=== PATIENT | male | born 1960 | race Caucasian/White ===

== ENCOUNTER 2023-07-13 08:42 | Observation (INO) ==
[2023-07-13 09:33] LABS: Platelet Count 308 10^3/uL (150-450)
[2023-07-13] MEDS ORDERED: Ondansetron 4 mg VIAL 2 MG/ML 2 ml VIAL IV PRN (09:41)
[2023-07-13] MEDS ORDERED: Morphine 2 MG/ML SYRINGE IV PRN (09:41)
[2023-07-13 09:42] LABS: Activated Partial Thrombo Time 24.2 seconds (26.0-38.0); INR 0.89 (0.83-1.13)
[2023-07-13] MEDS: ceFAZolin 1 GM ADVAN 1 GM ADDV.VIAL IVPB ONE (14:20)
[2023-07-13] MEDS: fentaNYL 250 mcg/5 ml 50 MCG/ML 5 ml VIAL (250 MCG) ONE (14:20)
[2023-07-13] MEDS: Midazolam 2 mg/2 ml VIAL 1 mg/ml 2 ml VIAL (2 mg) ONE (14:20)
[2023-07-13] MEDS: Bupivacaine 0.5% SDV PF 30ML VIAL ONE (14:20)
[2023-07-13] MEDS: Lidocaine 1% w EPI 1:100,000 MDV 20 ML VIAL ONE (14:20)
[2023-07-13] MEDS: Glucagon 1 mg VIAL KIT ONE (14:20)
[2023-07-13] MEDS: fentaNYL 100 mcg/2 ml 50 MCG/ML VIAL ONE (14:21)
[2023-07-13] MEDS: Lidocaine 2% JELLY 6 ML Topical TOPICAL ONE (14:21)
[2023-07-13] MEDS: Lactated Ringers 1000 ml BAG 1,000 ML IV ONE (15:17)
[2023-07-13] MEDS: HYDROmorphone 0.5 MG/0.5 ML SYRINGE IV SLOW PU PRN (15:22)
[2023-07-14 05:14] LABS: ABS Eosinophils 0.1 10^3/uL (0.0-0.5); ABS Lymphocytes 0.7 10^3/uL (1.0-4.8); ABS Monocytes 0.2 10^3/uL (0.0-1.1); ABS Neutrophils 3.9 10^3/uL (1.5-7.6); ABS Nucleated RBC 0.01 10^3/ul; Eosinophil % 2.1 %; Hemoglobin 10.3 g/dL (13.2-16.3); Lymphocyte % 13.4 %; Mean Corpuscular Hemoglobin 33.5 pg (27-33); Mean Corpuscular Hgb Conc 34.2 g/dL (31-36); Mean Corpuscular Volume 97.9 fL (80-97); Mean Platelet Volume 6.4 fL (7.5-11.2); Nucleated Red Blood Cells % 0.2 %/100WBC (0.0-0.8); Platelet Count 278 10^3/uL (150-450); Red Blood Count 3.06 10^6/uL (4.06-5.63); Red Cell Distribution Width 13.7 % (12-17)
[2023-07-14 05:42] LABS: Albumin 3.1 g/dL (3.2-5.2); Albumin/Globulin Ratio 1.1 (1-3); Calcium 8.7 mg/dL (8.6-10.3); Creatinine, Serum 0.45 mg/dL (0.67-1.17); Globulin 2.7 g/dL (2-4); Potassium 4.4 mmol/L (3.5-5.0); Total Bilirubin 0.3 mg/dL (0.2-1.0); Total Protein 5.8 g/dL (6.4-8.9); eGFR CKD-EPI 119.8 (>60)
[2023-07-14 13:57] VITALS: BP 100/73
== END 2023-07-14 14:15 | disposition home or self-care (01) ==
LOC: MED 08:42 → SP 08:42
PROVIDERS: ADMIT Internal Medicine Hematology; ATTEND Internal Medicine Hematology & Oncology

== ENCOUNTER 2023-09-29 13:08 | Inpatient (IN) ==
[~2023-09-29 13:08] MED LIST: APREPITANT 130 MG in Premix IV 0 ML IV SCH; CARBOPLATIN IVPB SCH; CISPLATIN IVPB SCH; FLUOROURACIL IVPB SCH; MAGNESIUM SULFATE IVPB SCH; NS 0.9% IVPB SCH; PEMBROLIZUMAB IVPB SCH; POTASSIUM CHLORIDE IVPB SCH
[2023-09-29 13:43] LABS: ABS Lymphocytes 0.5 10^3/uL (1.0-4.8); ABS Monocytes 0.4 10^3/uL (0.0-1.1); ABS Neutrophils 3.4 10^3/uL (1.5-7.6); ABS Nucleated RBC 0.01 10^3/ul; Eosinophil % 0.1 %; Hematocrit 25.9 % (38-53); Hemoglobin 8.9 g/dL (13.2-16.3); Lymphocyte % 12.1 %; Mean Corpuscular Hemoglobin 31.9 pg (27-33); Mean Corpuscular Hgb Conc 34.4 g/dL (31-36); Mean Corpuscular Volume 92.8 fL (80-97); Mean Platelet Volume 6.5 fL (7.5-11.2); Nucleated Red Blood Cells % 0.1 %/100WBC (0.0-0.8); Platelet Count 324 10^3/uL (150-450); Red Blood Count 2.79 10^6/uL (4.06-5.63); Red Cell Distribution Width 19.8 % (12-17); White Blood Count 4.4 10^3/uL (3.6-10.2)
[2023-09-29 14:35] LABS: Albumin 3.3 g/dL (3.2-5.2); Albumin/Globulin Ratio 1.1 (1-3); Calcium 9.7 mg/dL (8.6-10.3); Creatinine, Serum 0.8 mg/dL (0.67-1.17); Globulin 3.1 g/dL (2-4); Magnesium 2.1 mg/dL (1.9-2.7); Potassium 4.2 mmol/L (3.5-5.0); Total Bilirubin 0.6 mg/dL (0.2-1.0); Total Protein 6.4 g/dL (6.4-8.9); eGFR CKD-EPI 100.7 (>60)
[2023-09-29] MEDS ORDERED: Ondansetron ODT 4 mg TAB 4 MG TAB PO PRN (15:55)
[2023-09-29] MEDS: Enoxaparin 40 MG/0.4 ML SYR SUBCUT SCH (17:30)
[2023-09-29] MEDS: NS 0.9% 1000 ml BAG 1,000 ML IV SCH (17:33)
[2023-09-29] MEDS: Morphine ER 15 mg TAB ** extended release PO SCH (21:58)
[2023-09-30] MEDS: Iohexol 350 (CONTRAST) 500 ML MDV IV ONE (00:07)
[2023-09-30 09:39] LABS: Albumin 2.9 g/dL (3.2-5.2); Albumin/Globulin Ratio 1.1 (1-3); Calcium 8.8 mg/dL (8.6-10.3); Creatinine, Serum 0.51 mg/dL (0.67-1.17); Globulin 2.7 g/dL (2-4); Potassium 3.8 mmol/L (3.5-5.0); Total Bilirubin 0.4 mg/dL (0.2-1.0); Total Protein 5.6 g/dL (6.4-8.9); eGFR CKD-EPI 115.4 (>60)
[2023-09-30 09:46] LABS: ABS Lymphocytes 0.5 10^3/uL (1.0-4.8); ABS Monocytes 0.5 10^3/uL (0.0-1.1); ABS Neutrophils 3.7 10^3/uL (1.5-7.6); Eosinophil % 0.1 %; Hematocrit 23.3 % (38-53); Lymphocyte % 11.3 %; Mean Corpuscular Hemoglobin 32.4 pg (27-33); Mean Corpuscular Hgb Conc 34.5 g/dL (31-36); Mean Corpuscular Volume 93.9 fL (80-97); Nucleated Red Blood Cells % 0.1 %/100WBC (0.0-0.8); Platelet Count 268 10^3/uL (150-450); Red Blood Count 2.48 10^6/uL (4.06-5.63); Red Cell Distribution Width 19.8 % (12-17); White Blood Count 4.7 10^3/uL (3.6-10.2)
[2023-10-01 05:35] LABS: ABS Lymphocytes 0.8 10^3/uL (1.0-4.8); ABS Monocytes 0.4 10^3/uL (0.0-1.1); Eosinophil % 0.2 %; Hematocrit 22.5 % (38-53); Hemoglobin 7.8 g/dL (13.2-16.3); Lymphocyte % 18.1 %; Mean Corpuscular Hemoglobin 32.6 pg (27-33); Mean Corpuscular Hgb Conc 34.9 g/dL (31-36); Mean Corpuscular Volume 93.4 fL (80-97); Mean Platelet Volume 7.1 fL (7.5-11.2); Platelet Count 249 10^3/uL (150-450); Red Cell Distribution Width 20.8 % (12-17); White Blood Count 4.2 10^3/uL (3.6-10.2)
[2023-10-01 06:49] LABS: Calcium 8.7 mg/dL (8.6-10.3); Creatinine, Serum 0.45 mg/dL (0.67-1.17); Potassium 3.6 mmol/L (3.5-5.0); eGFR CKD-EPI 119.8 (>60)
[2023-10-01 10:07] LABS: Albumin 2.8 g/dL (3.2-5.2); Albumin/Globulin Ratio 1.2 (1-3); Globulin 2.3 g/dL (2-4); Magnesium 1.8 mg/dL (1.9-2.7); Phosphorus 2.3 mg/dL (2.5-5.0); Total Bilirubin 0.4 mg/dL (0.2-1.0); Total Protein 5.1 g/dL (6.4-8.9)
[2023-10-01] MEDS: NS 0.9% 1000 ml BAG 1,000 ML IV SCH (10:21)
[2023-10-01] MEDS: Magnesium Sulfate 2 gm BAG 2 GM/50 ML BAG IVPB ONE (15:22)
[2023-10-01] MEDS: Potassium Phosphate IV 15 MMOL in NS 0.9% 250 ml 250 ML IVPB ONE (18:06)
[2023-10-02 05:54] LABS: ABS Lymphocytes 0.6 10^3/uL (1.0-4.8); ABS Monocytes 0.3 10^3/uL (0.0-1.1); ABS Neutrophils 2.5 10^3/uL (1.5-7.6); Hematocrit 19.5 % (38-53); Hemoglobin 6.7 g/dL (13.2-16.3); Lymphocyte % 18.4 %; Mean Corpuscular Hgb Conc 34.4 g/dL (31-36); Mean Platelet Volume 7.3 fL (7.5-11.2); Nucleated Red Blood Cells % 0.1 %/100WBC (0.0-0.8); Platelet Count 215 10^3/uL (150-450); Red Cell Distribution Width 20.4 % (12-17); White Blood Count 3.3 10^3/uL (3.6-10.2)
[2023-10-02 06:31] LABS: Albumin 2.5 g/dL (3.2-5.2); Albumin/Globulin Ratio 1.2 (1-3); Calcium 8.1 mg/dL (8.6-10.3); Creatinine, Serum 0.41 mg/dL (0.67-1.17); Globulin 2.1 g/dL (2-4); Phosphorus 2.8 mg/dL (2.5-5.0); Potassium 3.4 mmol/L (3.5-5.0); Total Bilirubin 0.2 mg/dL (0.2-1.0); Total Protein 4.6 g/dL (6.4-8.9); eGFR CKD-EPI 123.2 (>60)
[2023-10-02] MEDS: KCL 20 MEQ/100 ML IVPREMIX 20 MEQ/100 ML BAG IV SCH (10:33)
[2023-10-02 10:46] LABS: Hemoglobin 7.1 g/dL (13.2-16.3)
[2023-10-03 06:16] LABS: ABS Lymphocytes 0.9 10^3/uL (1.0-4.8); ABS Monocytes 0.4 10^3/uL (0.0-1.1); ABS Neutrophils 3.7 10^3/uL (1.5-7.6); Eosinophil % 0.1 %; Hematocrit 22.3 % (38-53); Hemoglobin 7.8 g/dL (13.2-16.3); Lymphocyte % 17.2 %; Mean Corpuscular Hemoglobin 32.8 pg (27-33); Mean Corpuscular Hgb Conc 34.9 g/dL (31-36); Mean Corpuscular Volume 93.8 fL (80-97); Mean Platelet Volume 7.3 fL (7.5-11.2); Platelet Count 227 10^3/uL (150-450); Red Blood Count 2.38 10^6/uL (4.06-5.63); Red Cell Distribution Width 20.4 % (12-17)
[2023-10-03 06:57] LABS: Albumin 2.5 g/dL (3.2-5.2); Albumin/Globulin Ratio 1.2 (1-3); Calcium 8.2 mg/dL (8.6-10.3); Creatinine, Serum 0.41 mg/dL (0.67-1.17); Globulin 2.1 g/dL (2-4); Magnesium 1.7 mg/dL (1.9-2.7); Phosphorus 2.4 mg/dL (2.5-5.0); Potassium 4.1 mmol/L (3.5-5.0); Total Bilirubin 0.2 mg/dL (0.2-1.0); Total Protein 4.6 g/dL (6.4-8.9); eGFR CKD-EPI 123.2 (>60)
[2023-10-03] MEDS: Potassium & Sodium Phos 250 mg = 1 PACKET PEG TUBE SCH (10:08)
[2023-10-03] MEDS: Magnesium Sulfate 2 gm BAG 2 GM/50 ML BAG IVPB ONE (10:09)
[2023-10-03] MEDS: HYDROcodone/ACET. 7.5/325 LIQ 15 ML UDC PO PRN (16:42)
[2023-10-04 09:19] LABS: ABS Monocytes 0.5 10^3/uL (0.0-1.1); ABS Neutrophils 4.4 10^3/uL (1.5-7.6); Eosinophil % 0.1 %; Hematocrit 25.9 % (38-53); Hemoglobin 8.9 g/dL (13.2-16.3); Lymphocyte % 17.6 %; Mean Corpuscular Hemoglobin 32.5 pg (27-33); Mean Corpuscular Hgb Conc 34.5 g/dL (31-36); Mean Corpuscular Volume 94.1 fL (80-97); Mean Platelet Volume 7.3 fL (7.5-11.2); Platelet Count 288 10^3/uL (150-450); Red Blood Count 2.76 10^6/uL (4.06-5.63); Red Cell Distribution Width 20.3 % (12-17)
[2023-10-04 10:03] LABS: Albumin 2.8 g/dL (3.2-5.2); Albumin/Globulin Ratio 1.2 (1-3); Calcium 8.4 mg/dL (8.6-10.3); Creatinine, Serum 0.44 mg/dL (0.67-1.17); Globulin 2.4 g/dL (2-4); Magnesium 1.9 mg/dL (1.9-2.7); Phosphorus 3.5 mg/dL (2.5-5.0); Potassium 4.1 mmol/L (3.5-5.0); Total Bilirubin 0.2 mg/dL (0.2-1.0); Total Protein 5.2 g/dL (6.4-8.9); eGFR CKD-EPI 120.6 (>60)
[2023-10-05 05:50] LABS: C Reactive Protein 32.95 mg/L (<8.01); Calcium 8.3 mg/dL (8.6-10.3); Creatinine, Serum 0.44 mg/dL (0.67-1.17); Potassium 3.8 mmol/L (3.5-5.0); eGFR CKD-EPI 120.6 (>60)
[2023-10-05 06:07] LABS: ABS Lymphocytes 1.1 10^3/uL (1.0-4.8); ABS Monocytes 0.5 10^3/uL (0.0-1.1); ABS Neutrophils 3.9 10^3/uL (1.5-7.6); Eosinophil % 0.1 %; Hematocrit 25.1 % (38-53); Hemoglobin 8.5 g/dL (13.2-16.3); Lymphocyte % 19.9 %; Mean Corpuscular Hemoglobin 31.9 pg (27-33); Mean Corpuscular Hgb Conc 34.1 g/dL (31-36); Mean Corpuscular Volume 93.8 fL (80-97); Mean Platelet Volume 7.4 fL (7.5-11.2); Platelet Count 294 10^3/uL (150-450); Red Blood Count 2.67 10^6/uL (4.06-5.63); Red Cell Distribution Width 20.9 % (12-17); White Blood Count 5.5 10^3/uL (3.6-10.2)
[2023-10-05] MEDS: Iohexol 350 (CONTRAST) 500 ML MDV IV ONE ×2 (13:40→13:55)
[2023-10-05] MEDS: Polyethylene Glycol 3350 17 GM PACKET PO PRN (13:55)
[2023-10-05] MEDS: Amoxicillin/Clavul ORALSYR 80 MG/ML (400 MG/5 ML) PO SCH (21:44)
[2023-10-06] MEDS: Morphine ER 30 mg TAB ** extended release PO SCH (10:03)
[2023-10-06] MEDS: Senna TAB 8.6 mg TAB PO SCH (21:10)
[2023-10-07] MEDS: Polyethylene Glycol 3350 17 GM PACKET PO SCH (09:28)
[2023-10-07 17:12] VITALS: BP 98/66
== END 2023-10-07 18:35 | disposition home health service (06) | DRG 146 ==
LOC: CHOA 13:08 → MED 16:37
PROVIDERS: ADMIT Internal Medicine Medical Oncology; ATTEND Internal Medicine

== ENCOUNTER 2023-10-22 19:13 | Inpatient (IN) ==
[2023-10-22 20:05] LABS: ABS Lymphocytes 0.8 10^3/uL (1.0-4.8); ABS Monocytes 0.6 10^3/uL (0.0-1.1); ABS Neutrophils 14.6 10^3/uL (1.5-7.6); ABS Nucleated RBC 0.01 10^3/ul; Hematocrit 37.5 % (38-53); Lymphocyte % 5.2 %; Mean Corpuscular Hemoglobin 31.9 pg (27-33); Mean Corpuscular Hgb Conc 31.9 g/dL (31-36); Mean Platelet Volume 8.9 fL (7.5-11.2); Nucleated Red Blood Cells % 0.1 %/100WBC (0.0-0.8); Platelet Count 385 10^3/uL (150-450); Red Blood Count 3.75 10^6/uL (4.06-5.63); Red Cell Distribution Width 22.7 % (12-17); White Blood Count 16.1 10^3/uL (3.6-10.2)
[2023-10-22] MEDS ORDERED: Vancomycin 1,000 MG in NS 0.9% 250 ml 250 ML IVPB ONE (20:06)
[2023-10-22] MEDS: Cefepime 1 GM in Dextrose 1 GM/50 ML BAG IV ONE (20:15)
[2023-10-22 20:21] LABS: Activated Partial Thrombo Time 26.5 seconds (26.0-38.0); INR 1.13 (0.83-1.13)
[2023-10-22 20:29] LABS: High Sens Troponin Baseline 28 pg/mL (<20)
[2023-10-22 20:51] LABS: ALT 16 U/L (7-52); Albumin 3.9 g/dL (3.2-5.2); Alkaline Phosphatase 125 U/L (35-149); Anion Gap 17 mmol/L (2-16); Blood Urea Nitrogen 90 mg/dL (6-24); C Reactive Protein 18.67 mg/L (<8.01); CO2 Carbon Dioxide 24 mmol/L (22-32); Calcium 13.5 mg/dL (8.6-10.3); Chloride 104 mmol/L (101-111); Creatinine, Serum 2.09 mg/dL (0.67-1.17); Globulin 3.9 g/dL (2-4); Glucose 108 mg/dL (70-100); Sodium 145 mmol/L (135-145); Total Bilirubin 0.6 mg/dL (0.2-1.0); Total Protein 7.8 g/dL (6.4-8.9); eGFR CKD-EPI 35.4 (>60)
[2023-10-22 21:30] LABS: High Sensitivity Troponin 1 Hr 23 pg/mL (<20)
[2023-10-22] MEDS: Vancomycin 750 MG in NS 0.9% 250 ML IVPB ONE (22:22)
[2023-10-22] MEDS: NORMOSOL-R pH 7.4 1000 mL BAG 1,000 ML IV SCH (23:12)
[2023-10-23] MEDS ORDERED: Senna TAB 8.6 mg TAB PO PRN (00:37)
[2023-10-23] MEDS ORDERED: Polyethylene Glycol 3350 BTL 238 GM BTL PO PRN (00:37)
[2023-10-23] MEDS ORDERED: Polyethylene Glycol 3350 17 GM PACKET PO PRN (00:50)
[2023-10-23] MEDS ORDERED: HYDROcodone/ACETAMIN 5/325 mg TAB PO PRN (00:57)
[2023-10-23] MEDS ORDERED: Vancomycin per Pharmacy 1 EA NOTE FOLLOW UP SCH ×2 (03:00→19:00)
[2023-10-23 03:29] LABS: Calcium 11.5 mg/dL (8.6-10.3); Creatinine, Serum 1.47 mg/dL (0.67-1.17); Phosphorus 3.1 mg/dL (2.5-5.0); Potassium 3.6 mmol/L (3.5-5.0); eGFR CKD-EPI 53.9 (>60)
[2023-10-23] MEDS: Ondansetron ODT 4 mg TAB 4 MG TAB PO PRN (03:34)
[2023-10-23 04:18] LABS: Calcium (PTH Intact) 11.7 mg/dL (8.6-10.3)
[2023-10-23 06:12] LABS: Urine Appearance Clear; Urine Bilirubin Negative (Negative); Urine Blood Negative (Negative); Urine Color Light-Yellow; Urine Glucose Negative (Negative); Urine Ketones 1+ (Negative); Urine Nitrite Negative (Negative); Urine Protein Trace (Negative); Urine Specific Gravity 1.023 (1.002-1.030); Urine Urobilinogen Negative (Negative); Urine pH 5.5 (5.0-8.0)
[2023-10-23 06:52] LABS: ABS Lymphocytes 0.8 10^3/uL (1.0-4.8); ABS Monocytes 0.7 10^3/uL (0.0-1.1); ABS Neutrophils 13.1 10^3/uL (1.5-7.6); Eosinophil % 0.1 %; Hematocrit 27.4 % (38-53); Hemoglobin 9.3 g/dL (13.2-16.3); Lymphocyte % 5.2 %; Mean Corpuscular Hemoglobin 33.7 pg (27-33); Mean Corpuscular Hgb Conc 34.1 g/dL (31-36); Mean Corpuscular Volume 98.7 fL (80-97); Mean Platelet Volume 8.1 fL (7.5-11.2); Platelet Count 237 10^3/uL (150-450); Red Blood Count 2.78 10^6/uL (4.06-5.63); Red Cell Distribution Width 22.2 % (12-17); White Blood Count 14.6 10^3/uL (3.6-10.2)
[2023-10-23 07:22] LABS: Calcium 11.3 mg/dL (8.6-10.3); Creatinine, Serum 1.28 mg/dL (0.67-1.17); Potassium 3.4 mmol/L (3.5-5.0); eGFR CKD-EPI 63.7 (>60)
[2023-10-23] MEDS: Cefepime 2 GM in Dextrose 2 GM/50 ML BAG IV SCH (08:28)
[2023-10-23] MEDS: Morphine ER 30 mg TAB ** extended release PO SCH (09:22)
[2023-10-23 09:36] LABS: Magnesium 2.4 mg/dL (1.9-2.7)
[2023-10-23 10:15] LABS: Phosphorus 2.9 mg/dL (2.5-5.0)
[2023-10-23] MEDS: Potassium Chlor 20 meq TAB.ER PO SCH (10:46)
[2023-10-23] MEDS: Lactated Ringers 1000 ml BAG 1,000 ML IV ONE (11:31)
[2023-10-23] MEDS: KCL 10 MEQ/50 ML IVPREMIX 10 MEQ/50 ML BAG IV SCH (11:32)
[2023-10-23] MEDS: HYDROcodone/ACET. 7.5/325 LIQ 15 ML UDC PO PRN (14:07)
[2023-10-23] MEDS: metroNIDAZOLE IV 500 MG/100ML 500 MG/100 ML BAG IVPB SCH (14:08)
[2023-10-23] MEDS: Enoxaparin 30 MG/0.3 ML SYR SUBCUT SCH (15:28)
[2023-10-23 15:46] LABS: Calcium 11.2 mg/dL (8.6-10.3); Creatinine, Serum 1.02 mg/dL (0.67-1.17); Magnesium 2.2 mg/dL (1.9-2.7); Potassium 3.6 mmol/L (3.5-5.0); eGFR CKD-EPI 83.6 (>60)
[2023-10-23 18:28] LABS: Phosphorus 2.3 mg/dL (2.5-5.0)
[2023-10-23] MEDS: Lactated Ringers 1000 ml BAG 500 ML IV ONE (19:20)
[2023-10-23] MEDS: NS 0.9% 1000 ml BAG 1,000 ML IV SCH (21:00)
[2023-10-23] MEDS: Docusate LIQ 100 MG/10 ML UDC PO SCH (21:00)
[2023-10-23] MEDS: Potassium Chloride LIQUID 20 MEQ/15 ML LIQUID PEG TUBE SCH (21:00)
[2023-10-23] MEDS: cefTRIAXone 1 gm/50 mL D5W 1 GM/50 ML BAG IV SCH (21:00)
[2023-10-23] MEDS: Potassium Phosphate IV 10 MMOL in NS 0.9% 250 ml 250 ML IVPB ONE (21:32)
[2023-10-23] MEDS ORDERED: Vancomycin 1000 MG in NS 0.9% 250 ML IVPB SCH (22:00)
[2023-10-24] MEDS: Vancomycin 750 MG in NS 0.9% 250 ML IVPB ONE (00:14)
[2023-10-24 05:37] LABS: ABS Lymphocytes 0.5 10^3/uL (1.0-4.8); ABS Monocytes 0.5 10^3/uL (0.0-1.1); ABS Neutrophils 8.1 10^3/uL (1.5-7.6); Eosinophil % 0.2 %; Hematocrit 23.5 % (38-53); Lymphocyte % 5.4 %; Mean Corpuscular Hemoglobin 33.6 pg (27-33); Mean Corpuscular Hgb Conc 34.2 g/dL (31-36); Mean Corpuscular Volume 98.2 fL (80-97); Mean Platelet Volume 8.5 fL (7.5-11.2); Platelet Count 164 10^3/uL (150-450); Red Blood Count 2.39 10^6/uL (4.06-5.63); Red Cell Distribution Width 22.5 % (12-17); White Blood Count 9.1 10^3/uL (3.6-10.2)
[2023-10-24 06:07] LABS: Creatinine, Serum 0.72 mg/dL (0.67-1.17); Magnesium 1.8 mg/dL (1.9-2.7); Phosphorus 2.4 mg/dL (2.5-5.0); eGFR CKD-EPI 103.9 (>60)
[2023-10-24] MEDS: Magnesium Sulfate 2 gm BAG 2 GM/50 ML BAG IVPB ONE (08:57)
[2023-10-24] MEDS: Vancomycin 750 MG in NS 0.9% 250 ML IVPB SCH (08:57)
[2023-10-24] MEDS: Dexamethasone Oral Solution 1 MG/ML 10 ML UDC (10 MG) PEG TUBE SCH (09:02)
[2023-10-24] MEDS: Potassium Phosphate IV 10 MMOL in NS 0.9% 250 ml 250 ML IVPB ONE (11:14)
[2023-10-25] MEDS: Alteplase (CATHFLO) 2 MG VIAL IV ONE (06:02)
[2023-10-25] MEDS ORDERED: Lidocaine PATCH 5% PATCH TRANSDERM SCH (07:00)
[2023-10-25] MEDS: Lactated Ringers 1000 ml BAG 500 ML IV ONE (07:27)
[2023-10-25 08:48] LABS: ABS Lymphocytes 0.6 10^3/uL (1.0-4.8); ABS Monocytes 0.4 10^3/uL (0.0-1.1); ABS Neutrophils 9.1 10^3/uL (1.5-7.6); ABS Nucleated RBC 0.01 10^3/ul; Eosinophil % 0.1 %; Hematocrit 23.9 % (38-53); Hemoglobin 8.2 g/dL (13.2-16.3); Lymphocyte % 5.7 %; Mean Corpuscular Hemoglobin 33.9 pg (27-33); Mean Corpuscular Hgb Conc 34.4 g/dL (31-36); Mean Corpuscular Volume 98.6 fL (80-97); Mean Platelet Volume 8.8 fL (7.5-11.2); Nucleated Red Blood Cells % 0.1 %/100WBC (0.0-0.8); Platelet Count 161 10^3/uL (150-450); Red Blood Count 2.43 10^6/uL (4.06-5.63); Red Cell Distribution Width 22.4 % (12-17); White Blood Count 10.1 10^3/uL (3.6-10.2)
[2023-10-25 09:03] LABS: Calcium 9.5 mg/dL (8.6-10.3); Creatinine, Serum 0.67 mg/dL (0.67-1.17); Magnesium 1.8 mg/dL (1.9-2.7); Phosphorus 1.3 mg/dL (2.5-5.0); Potassium 3.5 mmol/L (3.5-5.0); eGFR CKD-EPI 106.2 (>60)
[2023-10-25] MEDS: Vancomycin Trough Check NOTE FOLLOW UP ONE (11:18)
[2023-10-25] MEDS: ceFAZolin 1 GM ADVAN 1 GM in NS 0.9% 50 ML 50 ML IVPB SCH (11:20)
[2023-10-25] MEDS: cefTRIAXone 2 gm/50 mL D5W 2 GM/50 ML BAG IV SCH (12:05)
[2023-10-25] MEDS ORDERED: KCL 10 MEQ/50 ML IVPREMIX 10 MEQ/50 ML BAG IV SCH (13:00)
[2023-10-25] MEDS: Magnesium Sulfate 2 gm BAG 2 GM/50 ML BAG IVPB ONE (14:56)
[2023-10-25] MEDS: Potassium Phosphate IV 15 MMOL in NS 0.9% 250 ml 250 ML IVPB ONE (16:11)
[2023-10-25] MEDS ORDERED: Amoxicillin/Clavul 875/125 TAB (Augmentin 875 tab) PO SCH (21:00)
[2023-10-25] MEDS ORDERED: Vancomycin Trough Check NOTE FOLLOW UP ONE (21:30)
[2023-10-26 06:23] LABS: ABS Lymphocytes 0.7 10^3/uL (1.0-4.8); ABS Monocytes 0.3 10^3/uL (0.0-1.1); ABS Neutrophils 7.9 10^3/uL (1.5-7.6); Eosinophil % 0.5 %; Hematocrit 24.3 % (38-53); Hemoglobin 8.1 g/dL (13.2-16.3); Lymphocyte % 7.9 %; Mean Corpuscular Hemoglobin 32.9 pg (27-33); Mean Corpuscular Hgb Conc 33.4 g/dL (31-36); Mean Corpuscular Volume 98.5 fL (80-97); Mean Platelet Volume 9.3 fL (7.5-11.2); Platelet Count 127 10^3/uL (150-450); Red Blood Count 2.47 10^6/uL (4.06-5.63); Red Cell Distribution Width 22.4 % (12-17); White Blood Count 8.9 10^3/uL (3.6-10.2)
[2023-10-26 07:11] LABS: Calcium 8.9 mg/dL (8.6-10.3); Creatinine, Serum 0.6 mg/dL (0.67-1.17); Magnesium 1.8 mg/dL (1.9-2.7); Phosphorus 1.3 mg/dL (2.5-5.0); Potassium 3.3 mmol/L (3.5-5.0); eGFR CKD-EPI 109.8 (>60)
[2023-10-26] MEDS: Magnesium Sulfate 2 gm BAG 2 GM/50 ML BAG IVPB ONE (10:10)
[2023-10-26] MEDS: KCL 10 MEQ/50 ML IVPREMIX 10 MEQ/50 ML BAG IV SCH (10:58)
[2023-10-26] MEDS ORDERED: Sulfur Hexaflouride MICROSPHR 25 MG VIAL IV ONE (11:19)
[2023-10-26] MEDS: Lactated Ringers 1000 ml BAG 500 ML IV ONE (19:53)
[2023-10-27] MEDS: NS 0.9% 500 ml BAG 500 ML IV ONE (02:19)
[2023-10-27] MEDS: Amoxicillin/Clavul ORALSYR 80 MG/ML (400 MG/5 ML) PEG TUBE SCH (08:47)
[2023-10-27 09:27] VITALS: BP 97/68
== END 2023-10-27 11:40 | disposition hospice, inpatient (51) | DRG 871 ==
LOC: ED 19:13 → EDHOLD 19:13 → SUATTDRO 22:12 → MED 10-23 12:02
PROVIDERS: ADMIT Internal Medicine; ATTEND Internal Medicine